=== PATIENT | female | born 1935 | race Caucasian/White ===

== ENCOUNTER 2016-12-27 23:47 | Inpatient (IN) | payer MEDICARE, OTHER ==
--- NOTE | ~2016-12-27 | HP ---
History And Physical [place] [id number] [facility] [place]. [address] NAME: VIOLETTA BELLA : 39 STATUS : ADM IN PAT#: [id number] AGE: 81 ADM/REG DATE : 12/27/16 MR#: [id number] REPORT SERV DATE: 12/28/16 DICTATED BY: JOSE M CHAVEZ DATE: 12/28/16 REPORT STATUS : Draft TRANSCRIBED BY: MODGeoffrey DATE: 12/28/16 DATE OF ADMISSION: 12/27/2016 REASON FOR ADMISSION: NSTEMI. HISTORY OF PRESENT ILLNESS: Ms. Bella is a very pleasant 81-year-old female with a history of postoperative atrial fibrillation (2011) and hypertension without other significant medical history who presented to [facility] yesterday evening after having new onset substernal chest pressures that started at the grocery store yesterday afternoon at 1400 hours. She states that she was in her usual state of health up until yesterday afternoon when she was at the grocery store with her , and at around 1400 hours she developed central/substernal chest pressures radiating up to her jaw. She felt significantly nauseous with this and poor in general. She states that she knew something was wrong, and therefore decided to go home. She had 3 episodes of diarrhea following her chest pressures. Her symptoms were persistent and stuttering in nature. Accordingly, she presented to [facility] for further evaluation and care given ongoing chest pressures. In the ER, she was found to have positive troponin at 0.46 and then 0.57, prompting admission for NSTEMI. ALLERGIES: SULFA AND CIPRO. PAST MEDICAL HISTORY: As above. SOCIAL HISTORY: The patient lives at home with her . She denies drinking alcohol, smoking or doing drugs. FAMILY HISTORY: Noncontributory for premature cardiovascular disease. HOME MEDICATIONS: 1. Eliquis 5 mg p.o. b.i.d. 2. Synthroid. 3. Lisinopril 20 mg p.o. daily. 4. Melatonin. 5. Remeron. 6. Pindolol 10 mg p.o. b.i.d. 7. Ultram. REVIEW OF SYSTEMS: As above, all other systems otherwise negative. PHYSICAL EXAMINATION: VITAL SIGNS: Blood pressure 122/56, pulse 62, temperature 97.8. GENERAL: Well developed, well nourished, no acute distress. NEURO: Awake, alert and oriented x3; no focal deficits, appropriate mood. HEENT: Moist mucous membranes, anicteric sclerae, no nasal discharge. NECK: No JVD, no carotid bruit. LUNGS: Clear to auscultation bilaterally, no wheezes, rales or rhonchi. History And Physical [address] [address] NAME: VIOLETTA BELLA : 39 STATUS : ADM IN [facility]#: [id number] AGE: 81 ADM/REG DATE : 12/27/16 MR#: [id number] REPORT SERV DATE: 12/28/16 DICTATED BY: JOSE M CHAVEZ DATE: 12/28/16 REPORT STATUS : Draft TRANSCRIBED BY: JUANJOSE DATE: 12/28/16 CV: Regular rhythm, normal S1/S2, no murmurs, rubs or gallops. ABD: Soft, non-tender, non-distended, no rebound or guarding. EXT: No pitting edema, normal distal pulses. SKIN: Warm, dry and intact; no rash. PERTINENT TEST FINDINGS: Potassium 4.5, creatinine 0.94, GFR 67, magnesium 2.1. White blood cell count 7.9, hemoglobin 14.7. INR 1.2. Platelets 328. Troponin 0.46 and 0.57. EKG demonstrates sinus rhythm with a left bundle branch block. No obvious ischemic changes. LDL is 107, triglycerides 54, on lipids from this morning. IMPRESSION AND PLAN: Ms. Bella is a very pleasant 81-year-old female with a history of brief postoperative atrial fibrillation on Eliquis, hypertension, and hypothyroidism who presents with substernal chest pressures radiating to her jaws, yesterday 1400 hours on and off with positive enzymes in the setting of NSTEMI. Accordingly, I have the following recommendations by problem below: 1. Non-ST segment elevation myocardial infarction-continue heparin drip as written. Continue n.p.o. status. Already dosed with aspirin. Add statin. Check an echocardiogram. I have discussed the risks and benefits of coronary angiography with possible PCI, and the patient verbalized understanding and is amenable with proceeding with this procedure today. Further recommendations to follow pending procedure results. 2. History of postoperative atrial fibrillation-as per my review of Dr. Dewitt's note, which states that she only had brief postoperative atrial fibrillation five years ago, I am unsure as to whether she requires Eliquis chronic therapy. It may be worthwhile to get a Holter or event monitor to determine what her burden of atrial fibrillation is at this point in time, as she had a clear trigger with the 1 known episode that she had 5 years ago. It may be reasonable to, at this point, discontinue Eliquis pending those findings. 3. Left bundle branch block-chronic. Unchanged as of EKG from this admission. Workup per #1. 4. Hypertension-controlled. VR/MODL Jose M Chavez MD / [id number] CC: Mateo Vilchis M.D. Melissa Garza M.D.
[2016-12-27 21:34] LABS: BASOPHILS 0.1 %; BASOPHILS ABSOLUTE 0.01 10/3/uL (0.0-0.16); EOSINOPHILS 0.4 %; EOSINOPHILS ABSOLUTE 0.03 10/3/uL (0.0-0.53); HEMATOCRIT 43.2 % (36.0-48.0); HEMOGLOBIN 14.7 g/dL (12.0-16.0); IMMATURE GRANULOCYTES 0.1 %; IMMATURE GRANULOCYTES ABSOLUTE 0.01 10/3/uL (0.0-0.11); LYMPHOCYTES 23.5 %; LYMPHOCYTES ABSOLUTE 1.86 10/3/uL (0.67-4.30); MEAN CORPUSCULAR HEMOGLOB 30.6 pg (26.0-34.0); MONOCYTES 4.4 %; MONOCYTES ABSOLUTE 0.35 10/3/uL (0.21-1.20); NEUTROPHILS 71.5 %; NEUTROPHILS ABSOLUTE 5.65 10/3/uL (2.02-8.40); PLATELET COUNT 328 10/3/uL (150-400); RBC DISTRIBUTION WIDTH 14.1 % (12.0-16.0); WHITE BLOOD CELLS 7.9 10/3/uL (4.5-10.5)
[2016-12-27 21:35] LABS: MANUAL DIFF NO %
[2016-12-27 21:41] LABS: INTERNATIONAL NORMAL RATI 1.2 UNITS (-); PARTIAL THROMBO TIME 32.5 SEC (22.5-37.2); PROTIME (NOT ORD) 15.4 SEC (12.0-14.5)
[2016-12-27 21:49] LABS: CALCIUM, SERUM 9.6 MG/DL (8.5-10.4); CHLORIDE, SERUM 102 MMOL/L (96-112); CO2 (CARBON DIOXIDE) 25 MMOL/L (24-34); CREATININE 0.94 MG/DL (0.55-1.02); GFR AFRICAN AMERICAN 67 ML/MIN (>=60); GFR NON AFRICAN AMERICAN 58 ML/MIN (>=60); GLUCOSE, SERUM 116 MG/DL (60-99); POTASSIUM, SERUM 4.5 MMOL/L (3.5-5.3); SODIUM, SERUM 138 MMOL/L (135-148)
[2016-12-27 21:50] LABS: BUN (BLOOD UREA NITROGEN) 32 MG/DL (6-23); CHEST PAIN PROFILE TAT 0 Hrs 20 Mins; TROPONIN I 0.46 NG/ML (<0.05)
[~2016-12-27 23:47] MED LIST: ASAB PO; ATV.5 PO; CALTRA600D PO; ELIQUIS 5 MG TAB5 MG PO; LEVOTHROID125 MCG PO; LEVOTHYROXIN125 MCG PO; MAGNESIUM POWDER PO; MELA3 PO; MELATONIN1 M1 PO; MIRALAXPKT PO; MOBIC15 MG PO; MULTIVITAMIN CHEW PO; PRILO PO; PRIN20 PO; REFRESH OPH; RYTHMOL150 MG PO; VISKEN10 PO; VITAMIN B-12 SL; [UNRECOGNIZED DRUG - OTHER] PO
[2016-12-27] MEDS ORDERED: ELIQUIS 5 MG TAB5 MG PO (23:48)
[2016-12-27] MEDS ORDERED: SYN125 PO (23:49)
[2016-12-27] MEDS ORDERED: ULTRAM50 PO (23:50)
[2016-12-27] MEDS ORDERED: REM15 PO (23:50)
[2016-12-27] MEDS ORDERED: PRIN20 PO (23:50)
[2016-12-27] MEDS ORDERED: VISKEN10 PO (23:50)
[2016-12-27] MEDS ORDERED: [UNRECOGNIZED DRUG - OTHER] PO (23:53)
[2016-12-27] MEDS ORDERED: MELA3 PO (23:55)
[2016-12-28 08:07] LABS: BASOPHILS 0.3 %; BASOPHILS ABSOLUTE 0.02 10/3/uL (0.0-0.16); EOSINOPHILS ABSOLUTE 0.08 10/3/uL (0.0-0.53); HEMATOCRIT 41.4 % (36.0-48.0); HEMOGLOBIN 14.3 g/dL (12.0-16.0); IMMATURE GRANULOCYTES 0.1 %; IMMATURE GRANULOCYTES ABSOLUTE 0.01 10/3/uL (0.0-0.11); LYMPHOCYTES 42.1 %; LYMPHOCYTES ABSOLUTE 3.26 10/3/uL (0.67-4.30); MEAN CORPUS HGB CONC 34.5 g/dL (32.0-36.0); MEAN CORPUSCULAR HEMOGLOB 31.6 pg (26.0-34.0); MEAN CORPUSCULAR VOLUME 91.4 fL (80-100); MEAN PLATELET VOLUME 10.2 fL (9.2-13.0); MONOCYTES 8.3 %; MONOCYTES ABSOLUTE 0.64 10/3/uL (0.21-1.20); NEUTROPHILS 48.2 %; NEUTROPHILS ABSOLUTE 3.74 10/3/uL (2.02-8.40); PLATELET COUNT 275 10/3/uL (150-400); RED CELL COUNT 4.53 10/6/uL (4.0-5.6); WHITE BLOOD CELLS 7.8 10/3/uL (4.5-10.5)
[2016-12-28 08:08] LABS: MANUAL DIFF NO %
[2016-12-28 08:24] LABS: CHOL/HDL RATIO(NOT ORDER) 2.7 (0-5); TROPONIN I 0.49 NG/ML (<0.05)
[2016-12-29 05:34] LABS: CHLORIDE, SERUM 109 MMOL/L (96-112); CO2 (CARBON DIOXIDE) 23 MMOL/L (24-34); CREATININE 0.64 MG/DL (0.55-1.02); GFR AFRICAN AMERICAN 98 ML/MIN (>=60); GFR NON AFRICAN AMERICAN 85 ML/MIN (>=60); POTASSIUM, SERUM 3.8 MMOL/L (3.5-5.3); SODIUM, SERUM 142 MMOL/L (135-148)
[2016-12-29 05:35] LABS: BUN (BLOOD UREA NITROGEN) 17 MG/DL (6-23); CALCIUM, SERUM 8.5 MG/DL (8.5-10.4); GLUCOSE, SERUM 88 MG/DL (60-99)
[2016-12-29 05:54] LABS: BASOPHILS 0.5 %; BASOPHILS ABSOLUTE 0.03 10/3/uL (0.0-0.16); EOSINOPHILS 1.4 %; EOSINOPHILS ABSOLUTE 0.09 10/3/uL (0.0-0.53); HEMOGLOBIN 13.2 g/dL (12.0-16.0); IMMATURE GRANULOCYTES 0.2 %; IMMATURE GRANULOCYTES ABSOLUTE 0.01 10/3/uL (0.0-0.11); LYMPHOCYTES 33.2 %; LYMPHOCYTES ABSOLUTE 2.12 10/3/uL (0.67-4.30); MANUAL DIFF NO %; MEAN CORPUS HGB CONC 33.8 g/dL (32.0-36.0); MEAN CORPUSCULAR HEMOGLOB 30.8 pg (26.0-34.0); MEAN CORPUSCULAR VOLUME 91.1 fL (80-100); MEAN PLATELET VOLUME 10.4 fL (9.2-13.0); MONOCYTES 7.7 %; MONOCYTES ABSOLUTE 0.49 10/3/uL (0.21-1.20); NEUTROPHILS ABSOLUTE 3.64 10/3/uL (2.02-8.40); PLATELET COUNT 263 10/3/uL (150-400); RBC DISTRIBUTION WIDTH 14.3 % (12.0-16.0); RED CELL COUNT 4.28 10/6/uL (4.0-5.6); WHITE BLOOD CELLS 6.4 10/3/uL (4.5-10.5)
[2016-12-29] MEDS ORDERED: ASAB PO (08:09)
[2016-12-29] MEDS ORDERED: LIPITOR40 PO (08:10)
[2017-03-07] MEDS ORDERED: LIPITOR40 PO (05:55)
[2017-03-07] MEDS ORDERED: ELIQUIS 5 MG TAB5 MG PO (05:55)
[2017-03-07] MEDS ORDERED: BETAPACE80 PO (05:56)
[2017-03-07] MEDS ORDERED: CARD30 PO (05:56)
[2017-03-07] MEDS ORDERED: SYN125 PO (05:57)
[2017-03-07] MEDS ORDERED: REM15 PO ×2 (05:57→13:25)
[2017-03-07] MEDS ORDERED: MINOCIN100 PO (13:18)
[2017-03-07] MEDS ORDERED: BACTROINT TOP (13:20)
[2017-03-07] MEDS ORDERED: EFUDEX CREAM 5%40 GM TOP (13:21)
[2017-03-07] MEDS ORDERED: ULTRAM50 PO (13:23)
[2017-03-07] MEDS ORDERED: PRIN20 PO (13:24)
[2017-03-07] MEDS ORDERED: PROLIA60 MG/1 ML SC (13:26)
[2017-03-07] MEDS ORDERED: ASAB PO (13:26)
[2017-03-07] MEDS ORDERED: MELA3 PO (13:26)
[2017-03-07] MEDS ORDERED: MIRALAX POWDER1 PKT PO (13:27)
[2017-03-07] MEDS ORDERED: VICKS VAPO RUB TOP (13:29)
[2017-03-07] MEDS ORDERED: CALCIUM SUPPLEMENT PO ×2 (13:30→13:31)
== END 2016-12-29 10:49 | disposition home or self-care (01) | DRG 282 ==
LOC: ER 23:47 → 6NO 23:52
PROVIDERS: Emergency Medicine; Student in an Organized Health Care Education/Training Program
PROC: 4A023N7 Measurement of Cardiac Sampling and Pressure, Left Heart, Percutaneous Approach (ICD-10-PCS; principal; 2016-12-28)
PROC: B2111ZZ Fluoroscopy of Multiple Coronary Arteries using Low Osmolar Contrast (ICD-10-PCS; 2016-12-28)
PROC: B2151ZZ Fluoroscopy of Left Heart using Low Osmolar Contrast (ICD-10-PCS; 2016-12-28)
DX: I21.4 Non-ST elevation (NSTEMI) myocardial infarction (principal); I44.7 Left bundle-branch block, unspecified; I48.91 Unspecified atrial fibrillation; I10 Essential (primary) hypertension; I25.10 Atherosclerotic heart disease of native coronary artery without angina pectoris; Z88.2 Allergy status to sulfonamides; Z88.1 Allergy status to other antibiotic agents; Z79.02 Long term (current) use of antithrombotics/antiplatelets; E03.9 Hypothyroidism, unspecified
CPT/HCPCS: 71020; 80048; 80061; 83735; 84460; 84484; 85025; 85347; 85610; 85730; 93005; 93458; 99152; 99153; 99285; A9270-GY; C1769; C1894; C8929; J0360; J2250; J3010; Q9957; Q9967